=== PATIENT | female | born 1965 | race Caucasian/White ===

== ENCOUNTER 2024-11-16 10:11 | Outpatient (CLI) | payer BC, SELFPAY ==
--- NOTE | 2024-11-16 10:18 | XR_ITS ---
FINAL REPORT CLINICAL HISTORY: Evaluation of Left Foot Pain FINDINGS: AP, oblique and lateral views of the left foot were obtained. There is no prior exam for comparison. There is no acute fracture or dislocation. Mild multijoint degenerative disease is most pronounced at the midfoot. Soft tissues are unremarkable. IMPRESSION: Mild degenerative change without acute osseous abnormality of the left foot. Reviewed, Interpreted and Dictated by Leyda Tom MD Transcribed by Heather Toledo Authenticated and [facility]
--- NOTE | 2024-11-16 10:18 | XR_ITS ---
FINAL REPORT CLINICAL HISTORY: Evaluation of Right Foot Pain FINDINGS: AP, oblique and lateral views of the right foot were obtained. There is no prior exam for comparison. There is no acute fracture or dislocation. Hallux valgus deformity is noted. There is multijoint degenerative disease. Soft tissues are unremarkable. IMPRESSION: Chronic changes without acute osseous abnormality of the right foot. Reviewed, Interpreted and Dictated by Leyda Tom MD Transcribed by Heather Toledo Authenticated and [facility]
--- OUTSIDE RECORDS SUMMARY | 2024-11-16 10:31 | XMS_ITS | Clinical Summary ---
Author Organization [facility] Address [address] [place] [address] Care Team Providers Care Television News Anchor Name Role Phone Elias Corona MD Primary Care Provider [phone] Allergies Active Allergy Reactions Criticality Noted Date Comments Penicillins Rash Low 10/13/2021 Sulfa Antibiotics Rash Low 10/13/2021 Medications metoprolol tartrate (LOPRESSOR) 50 MG tablet Take 1 tablet by mouth Daily. 07/22/2022 Active levothyroxine (SYNTHROID, LEVOTHROID) 25 MCG tablet Take 1 tablet by mouth Daily. 07/22/2022 Active Red Yeast Rice 600 MG capsule Take by mouth. Active COLLAGEN PO Take by mouth. Active Active Problems Problem Noted Date Diagnosed Date Precordial chest pain 08/08/2023 Assessment & Plan (08/08/2023 9:55 AM EDT): Patient reports exertional chest pain and heaviness. - Proceed with cardiac workup to rule out ischemia Laboratory exam ordered as p art of routine general medical examination 02/04/2023 Coronary artery disease invo lving [place] coronary artery of [place] heart without angina pectoris 07/30/2022 Overview (07/30/2022): By calcium score 39 in 2021. Trying to aggressively control risk factors. Assessment & Plan (03/09/2024 3:49 PM EST): Coronary artery disease is stable . Continue current treatment regimen. Dietary sodium restriction. Weight loss. Regular aerobic exercise. Cardiac status will be reassessed in 6 months. - Check lipid panel. We will discuss further treatment after results are back. - Continue red yeast rice and omega-3. - Continue metoprolol at current dose Assessment & Plan (08/08/2023 9:54 AM EDT): Coronary artery disease is stable . Continue current treatment regimen. Dietary sodium restriction. Weight loss. Regular aerobic exercise. Cardiac status will be reassessed in 6 months. - Check lipid panel. We will discuss further treatment after results are back. - Continue red yeast rice and omega-3. - Continue metoprolol at current dose Assessment & Plan (02/04/2023 2:38 PM EST): Coronary artery disease is stable . Continue current treatment regimen. Dietary sodium restriction. Weight loss. Regular aerobic exercise. Cardiac status will be reassessed in 6 months. - Check lipid panel. We will discuss further treatment after results are back. - Continue red yeast rice and omega-3. - Continue metoprolol at current dose Pure hypercholesterolemia 07/30/2022 Assessment & Plan (03/09/2024 3:50 PM EST): Lipid panel from 08/21/2023 reviewed. Total cholesterol 214, triglycerides 159, LDL 129 and HDL 53. LDL was previously 148. Patient declines statin therapy at this time. She would like to continue red yeast rice and work on diet changes first. We will repeat lipid panel. - Fasting lipid panel -- Continue consistent exercise plan and increase cardio exercises to at least 20 minutes/day. - Recommend Mediterranean diet - Consider adding statin medication depending on result of lipid panel Assessment & Plan (08/08/2023 9:52 AM EDT): Lipid panel from 01/2023 reviewed, total cholesterol 223, Triglycerides 83, HDL 58 and LDL 148. I recommended statin medication at last visit but patient wanted to increase dose of red yeast rice and work on diet changes first. She would like to repeat lipid panel at this time. - Fasting lipid panel - Continue consistent exercise plan and increase cardio exercises to at least 20 minutes/day. - Recommend Mediterranean diet - Consider adding statin medication depending on result of lipid panel Assessment & Plan (02/04/2023 2:41 PM EST): Lipid panel from 08/21/2022 reviewed, total cholesterol 215, triglycerides 73, HDL 62, LDL 138. Patient has been exercising consistently and changed her diet to improve cholesterol. She has also been taking red yeast rice for the past 6 months. -We will recheck lipid panel -Continue consistent exercise plan and increase cardio exercises to at least 20 minutes per day. -Recommend Mediterranean diet Hypertension, essential 07/30/2022 Overview (07/30/2022): At home sometimes in the [address] at night. We will watch. Assessment & Plan (03/09/2024 3:48 PM EST): Hypertension is stable and controlled Continue current treatment regimen. Weight loss. Regular aerobic exercise. Blood pressure will be reassessed in 6 months. Assessment & Plan (08/08/2023 9:53 AM EDT): Hypertension is stable and controlled Continue current treatment regimen. Weight loss. Regular aerobic exercise. Blood pressure will be reassessed 1 month Her BP is slightly elevated today but she reports that it is always elevated at office visits and normal at home. - Keep a log of BP readings and bring to next office visit Assessment & Plan (02/04/2023 2:35 PM EST): Hypertension is stable . Continue current treatment regimen. Dietary sodium restriction. Weight loss. Regular aerobic exercise. Blood pressure will be reassessed at the next regular appointment. Family History Medical History Relation Name Comments Lung cancer Mother Relation Name Status Comments Father Mother (Age 52) Social History Tobacco Use Types Packs/Day Years Used Date Smoking Tobacco: Former Cigarettes 1 15 Passive Smoke Exposure: Never Smokeless Tobacco: Never Tobacco Cessation:Counseling Given: Yes Alcohol Use Standard Drinks/Week Comments Yes 0 (1 standard drink = 0.6 oz pur e alcohol) BEER 2 WEEKLY Comments Unknown Sex and Gender Information Value Date Recorded Sex Assigned at Not on file Legal Sex Female 10:47 AM EDT Gender Identity Not on file Sexual Orientation Not on file Last Filed Vital Signs Vital Sign Reading Time Taken Comments Blood Pressure 136/72 03/09/2024 2:42 PM EST Pulse 100 03/09/2024 2:42 PM EST Temperature - - Respiratory Rate - - Oxygen Saturation 94% 03/09/2024 2:42 PM EST Inhaled Oxygen Concentration - - Weight 83.9 kg (185 lb) 03/09/2024 2:42 PM EST Height 162.6 cm (5' 4 ) 03/09/2024 2:42 PM EST Body Mass Index 31.76 03/09/2024 2:42 PM EST Plan of Treatment Health Maintenance Due Date Last Done Comments Annual Gynecologic Pelvic an d Breast Exam 1965 TDAP/TD VACCINES (1 - Tdap) 10/07/1982 PAP SMEAR 10/07/1984 COLON CANCER SCREENING 5 YEA R SIGMOIDOSCOPY 10/07/2008 CT COLONOGRAPHY 10/07/2008 FECAL OCCULT BLOOD TEST 10/07/2008 FIT Testing (1 year) 10/07/2008 Pneumococcal Vaccine 50+ (1 of 1 - PCV) 10/07/2013 ZOSTER VACCINE (1 of 2) 10/07/2013 ANNUAL PHYSICAL 05/16/2022 HEPATITIS C SCREENING 05/16/2022 INFLUENZA VACCINE 09/25/2024 LIPID PANEL 03/13/2025 03/13/2024, 0606/2023, 02/05/2023, Additional history exists MAMMOGRAM 02/09/2026 02/10/2024, 01/25, 02/07/2023, Additional history exists COLOGUARD 12/16/2026 12/17/2023 COLONOSCOPY 11/25/2033 11/26/2023 COLORECTAL CANCER SCREENING 11/25/2033 Procedures Procedure Name Priority Date/Time Associated Diagnosis Comments LIPID PANEL Routine 03/13/2024 Laboratory exam ordered as part of routine general medical examination Pure hypercholesterolemia from Last 3 Months or Most Recently Relevant to Health Maintenance Results * Lipid Panel (03/13/2024) Blood us Martine Jones APRN LAB BLOOD ORDERABLES Fin al Result [facility]
[address] [place] [address], from Last 3 Months or Most Recently Relevant to Health Maintenance Insurance [facility] PPO Care Teams Television News Anchor Relationship Specialty Start Date End Date Elias Corona MD [address] [place] [id number] PCP - General Family Medicine 05/16/22
--- OUTSIDE RECORDS SUMMARY | 2024-11-16 10:31 | XMS_ITS | Clinical Summary ---
Author Organization [facility] Address [address] [place] [address] Phone Care Team Providers Care Survey Workers Supervisor Name Role Phone Unavailable Primary Care Provider Unavailabl e Social History Tobacco Use Types Packs/Day Years Used Date Smoking Tobacco: Never Assessed Sex and Gender Information Value Date Recorded Sex Assigned at Not on file Legal Sex Male 4:13 PM EST Gender Identity Not on file Sexual Orientation Not on file Plan of Treatment Health Maintenance Due Date Last Done Comments Annual Wellness Exam 10/07/1966 Hepatitis C Screening 10/07/1981 DTaP/TDaP/Td (1 - Tdap) 10/07/1982 Cologuard 10/07/2008 Colon Cancer Screening 10/07/2008 Colonoscopy 10/07/2008 FIT 10/07/2008 Sigmoidoscopy 10/07/2008 Virtual Colonography 10/07/2008 Pneumococcal Vaccine 50+ (1 of 1 - PCV) 10/07/2013 Zoster (1 of 2) 10/07/2013 COVID-19 Vaccine ( - 2023-2 5 season) 2024 Influenza Vaccine (#1) 2024 Hepatitis B Vaccine Aged Out No longe r eligible based on patient's age to complete this topic Meningococcal B Vaccine Aged Out No l onger eligible based on patient's age to complete this topic
--- OUTSIDE RECORDS SUMMARY | 2024-11-16 10:31 | XMS_ITS | Clinical Summary ---
Author Organization [facility] Address [facility] [place] [id number] Care Team Providers Care Carton Forming Machine Operator Name Role Phone Elias Corona MD Primary Care Provider [phone] Allergies Active Allergy Reactions Criticality Noted Date Comments Penicillins Rash Low 10/13/2021 Sulfa Drugs Rash Low 10/13/2021 Social History Tobacco Use Types Packs/Day Years Used Date Smoking Tobacco: Never Assessed Comments Unknown Sex and Gender Information Value Date Recorded Sex Assigned at Not on file Legal Sex Female 7:38 PM EDT Gender Identity Not on file Sexual Orientation Not on file Last Filed Vital Signs Vital Sign Reading Time Taken Comments Blood Pressure 140/75 10/20/2021 12:44 PM EDT Pulse 65 10/20/2021 12:44 PM EDT Temperature - - Respiratory Rate 18 10/20/2021 10:15 AM EDT Oxygen Saturation 98% 10/20/2021 12:44 PM EDT Inhaled Oxygen Concentration - - Weight 81.2 kg (179 lb) 10/20/2021 3:00 PM EDT Height 162.6 cm (5' 4 ) 10/20/2021 3:00 PM EDT Body Mass Index 30.73 10/20/2021 3:00 PM EDT Plan of Treatment Health Maintenance Due Date Last Done Comments [facility]-Depression Screening 1965 [facility]-Infant/Child/Adol SDOH Screenings 1965 [facility]- SDOH Screenings 10/07/1981 [facility]-Adult SDOH Screenings 10/07/1981 [facility]-DTaP,Tdap,and Td Vaccine s (1 - Tdap) 10/07/1982 [facility]-Pap Smear 10/07/1984 [facility]-Cervical Cancer Screening 10/07/1993 [facility]-HPV/Cotest 10/07/1993 CT Colonography 10/07/2008 Colonoscopy 10/07/2008 FIT-DNA 10/07/2008 FIT 10/07/2008 FOBT 10/07/2008 Sigmoidoscopy 10/07/2008 [facility]-Colorectal Cancer Screening 10/07/2008 [facility]-Pneumococcal Vaccine: 50 + Years (1 of 1 - PCV) 10/07/2013 [facility]-Zoster Vaccines (1 of 2) 10/07/2013 [id number] Vaccine (1 - 20 24-25 season) 2024 [facility]-Influenza Vaccine (#1) 2024 [facility]-RSV Vaccine: 60+ Years o r (1 - 1-dose 75+ series) 10/07/2038 HPV Vaccines Aged Out No longer eligi ble based on patient's age to complete this topic [facility]-HIB Vaccines Aged Out No longer e ligible based on patient's age to complete this topic [facility]-Hepatitis A Vaccines Aged Out No longer eligible based on patient's age to complete this topic [facility]-IPV Vaccines Aged Out No longer e ligible based on patient's age to complete this topic [facility]-Rotavirus Vaccines Aged Out No lo nger eligible based on patient's age to complete this topic Insurance ANTH Care Teams Carton Forming Machine Operator Relationship Specialty Start Date End Date Elias Corona MD [address] [place] [address] [facility] - General 07/08/20
== END 2024-11-16 23:59 | disposition home or self-care (01) ==
PROVIDERS: PCP Family Medicine; Visit Provider Podiatrist
DX: M19.072 Primary osteoarthritis, left ankle and foot (principal); M19.071 Primary osteoarthritis, right ankle and foot; M20.11 Hallux valgus (acquired), right foot
CPT/HCPCS: 73630